=== PATIENT | female | born 2000 | race Hispanic/Latino ===

== ENCOUNTER 2022-06-04 11:23 | Emergency (ER) | payer OTHER ==
[~2022-06-04] VITALS: Ht 160 cm; Wt 86.2 kg
[2022-06-04] MEDS ORDERED: SODIUM CHLORIDE 0.9% 1000ML 1,000 ML IV STA (11:52)
[2022-06-04 12:15] LABS: BASOPHILS # (AUTO) 0.1 (0.0-0.1); BASOPHILS % 0.5 % (0.0-1.0); EOSINOPHILS # (AUTO) 0.1 (0.0-0.4); EOSINOPHILS % 0.6 % (0.0-6.0); HEMATOCRIT 38.1 % (34.2-44.1); HEMOGLOBIN 12.4 g/dL (12.0-16.0); LYMPHOCYTES # (AUTO) 1.8 (1.0-3.2); LYMPHOCYTES % 18.1 % (18.0-39.1); MEAN CORPUSCULAR HEMOGLOBIN 27.6 pg (28-32); MEAN CORPUSCULAR HGB CONC 32.5 g/dL (31-35); MEAN CORPUSCULAR VOLUME 84.9 fL (81-99); MONOCYTES # (AUTO) 0.6 (0.2-0.8); MONOCYTES % 6.3 % (4.4-11.3); NEUTROPHILS # (AUTO) 7.5 (2.1-6.9); NEUTROPHILS % 74.1 % (38.7-80.0); PLATELET COUNT 300 x10e3/uL (140-360); RED BLOOD COUNT 4.49 x10e6/uL (3.6-5.1); RED CELL DISTRIBUTION WIDTH 14.2 % (11.7-14.4)
[2022-06-04 12:35] LABS: ALBUMIN 4.5 g/dL (3.5-5.0); ANION GAP 16.6 mmol/L (8-16); CALCIUM 9.6 mg/dL (8.4-10.2); CREATININE, SERUM 0.72 mg/dL (0.57-1.11); POTASSIUM 3.6 mmol/L (3.5-5.1)
[2022-06-04] MEDS ORDERED: IOPAMIDOL 370 MG/ML 100 ML INFUS..BTL INJ ONE (12:48)
== END 2022-06-04 15:50 | disposition home or self-care (01) ==
LOC: ER 11:27
DX: R50.9 Fever, unspecified (principal); R19.7 Diarrhea, unspecified; K62.5 Hemorrhage of anus and rectum
CPT/HCPCS: 36415; 74177; 80053; 83690; 84702; 85025; 93005; 99284; J7030; Q9967

== ENCOUNTER 2023-01-13 18:11 | Emergency (ER) | payer SELFPAY ==
[~2023-01-13] VITALS: Ht 160 cm; Wt 93.0 kg
[2023-01-13] MEDS ORDERED: BACITRACIN ZINC 0.9GM TP ONE (19:30)
[2023-01-13 20:10] VITALS: BP 138/75; O2SAT 100
== END 2023-01-13 20:06 | disposition home or self-care (01) ==
LOC: ER 18:23
DX: S61.201A Unspecified open wound of left index finger without damage to nail, initial encounter (principal); W45.8XXA Other foreign body or object entering through skin, initial encounter; Y92.89 Other specified places as the place of occurrence of the external cause
CPT/HCPCS: 99283

== ENCOUNTER 2023-09-22 12:52 | Emergency (ER) | payer SELFPAY ==
[~2023-09-22] VITALS: Ht 160 cm; Wt 93.0 kg
[~2023-09-22 12:52] MED LIST: HYDROCODON-ACE1 EA11 PO
[2023-09-22 13:17] VITALS: TEMP 97.7
[2023-09-22 14:34] VITALS: PULSE 67; RESP 18; O2SAT 98
== END 2023-09-22 14:36 | disposition home or self-care (01) ==
LOC: ER 13:03
DX: M25.571 Pain in right ankle and joints of right foot (principal); X50.1XXA Overexertion from prolonged static or awkward postures, initial encounter; Y92.89 Other specified places as the place of occurrence of the external cause
CPT/HCPCS: 99283